=== PATIENT | male | born 1985 | race Caucasian/White ===

== ENCOUNTER 2018-05-16 23:30 | Emergency (ER) | payer OTHER ==
[~2018-05-16] VITALS: Ht 170.2 cm; Wt 90.4 kg
[2018-05-17 01:11] VITALS: BP 151/83
== END 2018-05-17 01:11 | disposition home or self-care (01) ==
LOC: ED 23:30
DX: R13.10 Dysphagia, unspecified (principal); R03.0 Elevated blood-pressure reading, without diagnosis of hypertension; J45.909 Unspecified asthma, uncomplicated; Z88.0 Allergy status to penicillin

== ENCOUNTER 2019-02-17 20:56 | Emergency (ER) | payer OTHER ==
[~2019-02-17] VITALS: Ht 170.2 cm; Wt 85.3 kg
[2019-02-17 21:02] VITALS: Ht 170.2 cm; Wt 85.3 kg
[2019-02-17 21:44] LABS: BASOPHIL % 0.3 % (0-2); PLATELET COUNT 290 x10^3mcL (130-400); RED CELL DISTRIBUTION WIDTH 12.9 % (11.5-14.5)
[2019-02-17 21:55] LABS: CALCIUM 9.4 mg/dL (8.5-10.1); CARBON DIOXIDE 29.6 mmol/L (21-32); CHLORIDE SERUM 99 mmol/L (98-107); CREATININE SERUM 1.2 mg/dL (0.7-1.3); GFR1 > 60 mL/min; GLUCOSE SERUM 104 mg/dL (74-106); SODIUM SERUM 139 mmol/L (136-145)
[2019-02-17 22:48] LABS: microscopic required? YES; urine erythrocyte 2+ (NEGATIVE)
[2019-02-17 23:03] VITALS: BP 131/70
== END 2019-02-17 23:03 | disposition home or self-care (01) ==
LOC: ED 20:56
PROVIDERS: Emergency Medicine
DX: N13.2 Hydronephrosis with renal and ureteral calculous obstruction (principal); Z88.0 Allergy status to penicillin; J45.909 Unspecified asthma, uncomplicated
CPT/HCPCS: 36415; J1885; J7030

== ENCOUNTER 2019-05-05 19:45 | Emergency (ER) | payer OTHER ==
[~2019-05-05] VITALS: Ht 170.2 cm; Wt 86.7 kg
[2019-05-05 19:57] VITALS: BP 114/85
== END 2019-05-05 20:42 | disposition left against medical advice (07) ==
LOC: ED 19:45
DX: Z53.21 Procedure and treatment not carried out due to patient leaving prior to being seen by health care provider (principal)

== ENCOUNTER 2019-05-24 19:30 | Emergency (ER) | payer OTHER ==
[~2019-05-24] VITALS: Ht 170.2 cm; Wt 89.4 kg
[2019-05-24 21:57] LABS: microscopic required? YES; urine erythrocyte 2+ (NEGATIVE)
[2019-05-24 22:40] VITALS: BP 120/62
== END 2019-05-24 22:40 | disposition home or self-care (01) ==
LOC: ED 19:30
PROVIDERS: Emergency Medicine
DX: R21 Rash and other nonspecific skin eruption (principal); R39.198 Other difficulties with micturition; J45.909 Unspecified asthma, uncomplicated; H92.03 Otalgia, bilateral; K21.9 Gastro-esophageal reflux disease without esophagitis; Z87.442 Personal history of urinary calculi; Z88.0 Allergy status to penicillin
CPT/HCPCS: J7512